=== PATIENT | male | born 1955 | race Caucasian/White ===

== ENCOUNTER → 2024-11-26 08:30 | Outpatient (REF) | payer MEDICARE, SELFPAY ==
[2024-11-26 10:20] LABS: ALT (SGPT) 39 U/L (0-50); AST (SGOT) 36 U/L (17-59); Albumin 4.5 g/dl (3.5-5.0); Alkaline Phosphatase 95 U/L (38-126); Blood Urea Nitrogen 24 mg/dl (9-20); Calcium 9.5 mg/dl (8.4-10.2); Carbon Dioxide 32 mmol/L (22-30); Chloride 102 mmol/L (98-107); Glucose 99 mg/dl (70-99); Phosphorus 3.8 mg/dl (2.5-4.5); Potassium 5.3 mmol/L (3.5-5.1); Sodium 140 mmol/L (135-145); Total Bilirubin 0.6 mg/dl (0.2-1.3); eGFR > 60.00
[2024-11-26 12:02] LABS: Glycohemoglobin (HgbA1c) 5.7 % (4.0-5.6)
== END ==
LOC: REG 08:30
PROVIDERS: ATTENDING PHYSICIAN Nurse Practitioner Primary Care
DX: Z00.00 Encounter for general adult medical examination without abnormal findings (principal); Z12.5 Encounter for screening for malignant neoplasm of prostate; R73.03 Prediabetes; E78.2 Mixed hyperlipidemia; E66.09 Other obesity due to excess calories; Z68.37 Body mass index [BMI] 37.0-37.9, adult; I82.409 Acute embolism and thrombosis of unspecified deep veins of unspecified lower extremity; Z86.711 Personal history of pulmonary embolism; N40.0 Benign prostatic hyperplasia without lower urinary tract symptoms; H69.93 Unspecified Eustachian tube disorder, bilateral
CPT/HCPCS: 36415; 80053; 83036; 84100; G0103

== ENCOUNTER → 2025-07-21 07:06 | Outpatient (REF) | payer MEDICARE, SELFPAY ==
[2025-07-21 08:36] LABS: Hematocrit 40.4 % (39.0-52.0); Hemoglobin 13.5 g/dL (13.0-18.0); Mean Corp Hgb Conc. 33.4 g/dL (33.0-37.0); Mean Corpuscular Volume 89.0 fL (80.0-94.0); Nucleated Red Blood Cells % 0 % (-); Platelet Count 222 10^3/uL (130-400); Red Cell Dist. Width 12.4 % (11.5-14.5)
[2025-07-21 08:50] LABS: ALT (SGPT) 35 U/L (0-50); AST (SGOT) 33 U/L (17-59); Albumin 4.5 g/dl (3.5-5.0); Alkaline Phosphatase 87 U/L (38-126); Blood Urea Nitrogen 16 mg/dl (9-20); Calcium 9.3 mg/dl (8.4-10.2); Carbon Dioxide 25 mmol/L (22-30); Chloride 106 mmol/L (98-107); Glucose 109 mg/dl (70-99); HDL Cholesterol 55 mg/dl; LDL Cholesterol, Calculated 97 mg/dl; Potassium 4.6 mmol/L (3.5-5.1); Sodium 140 mmol/L (135-145); Total Protein 7.0 g/dl (6.3-8.2); Very Low Density Lipoprotein 23 mg/dl (0-30); eGFR > 60.00
[2025-07-21 09:05] LABS: Vitamin D, 25-OH*** 48.1 ng/mL (30-80)
[2025-07-21 14:01] LABS: Glycohemoglobin (HgbA1c) 5.7 % (4.0-5.6)
== END ==
LOC: REG 07:06
PROVIDERS: ATTENDING PHYSICIAN Nurse Practitioner Primary Care
DX: R73.03 Prediabetes (principal); E78.2 Mixed hyperlipidemia; I82.409 Acute embolism and thrombosis of unspecified deep veins of unspecified lower extremity; E55.9 Vitamin D deficiency, unspecified
CPT/HCPCS: 36415; 80053; 80061; 82306; 83036; 84443; 85025